=== PATIENT | female | born 1985 | race Hispanic/Latino ===

== ENCOUNTER 2019-02-25 12:26 | Emergency (ER) | payer MEDICAID, OTHER ==
[2019-02-25 12:27] VITALS: BMI 33.5
[2019-02-25 12:40] VITALS: RESP 18; O2SAT 98
[2019-02-25] MEDS ORDERED: Sodium Chloride 0.9% 1,000 ML IV STA ×2 (13:35→14:38)
[2019-02-25 14:18] LABS: BASO # 0.02 K/mm3 (0.0-2.0); BASO % 0.2 % (0.0-3.0); EOS # 0.1 (0.0-0.7); HEMOGLOBIN 13.9 g/dL (12.0-16.0); LYMPH # 4.5 (1.2-3.4); LYMPH % 39.2 % (22.0-35.0); MEAN CELL VOLUME 80.6 fl (80.0-105.0); MEAN CORPUSCULAR HEMOGLOBIN 26.1 pg (25.0-35.0); MEAN CORPUSCULAR HGB CONC 32.4 g/dl (31.0-37.0); MEAN PLATELET VOLUME 9.8 fl (7.0-11.0); MONO # 0.6 (0.1-0.6); MONO % 5.3 % (1.0-6.0); RBC 5.32 10^6/uL (3.5-6.1); RED CELL DISTRIBUTION WIDTH 14.3 % (11.5-14.5); URINE BILIRUBIN NEGATIVE (NEGATIVE); URINE BLOOD TRACE-LYSED (NEGATIVE); URINE GLUCOSE (UA) >=1000 mg/dL (NEGATIVE); URINE LEUKOCYTE ESTERASE NEGATIVE Leu/uL (NEGATIVE); URINE PROTEIN NEGATIVE mg/dL (<30 mg/dL); URINE UROBILINOGEN 0.2 E.U./dL (<1 E.U./dL); WHITE BLOOD COUNT 11.5 10^3/uL (4.5-11.0)
[2019-02-25 14:19] LABS: URINE APPEARANCE CLEAR (CLEAR); URINE COLOR LIGHT YELLOW (YELLOW)
[2019-02-25 14:23] LABS: URINE EPITHELIAL CELLS 0 - 2 /hpf (0-5); URINE RBC 0 - 2 /hpf (0-2)
[2019-02-25 14:27] LABS: INR 1.05; PARTIAL THROMBOPLASTIN TIME 34.6 Seconds (26.9-38.3); PROTHROMBIN TIME 11.7 SECONDS (9.4-12.5)
[2019-02-25 14:35] LABS: ALB/GLOB RATIO 1.2 (1.1-1.8); ALBUMIN 3.9 g/dL (3.0-4.8); ALT/SGPT 10 U/L (7-56); AST/SGOT 15 U/L (14-36); BLOOD UREA NITROGEN 8 mg/dL (7-21); GFR NON-AFRICAN AMERICAN > 60; LIPASE 51 U/L (23-300)
[2019-02-25 14:39] LABS: TROPONIN I < 0.01 ng/mL
--- NOTE | 2019-02-25 14:39 | ED PDOC ---
Arrival/HPI - General Chief Complaint: Abdominal Pain Time Seen by Provider: 02/25/19 13:14 Historian: Patient - History of Present Illness Narrative History of Present Illness (Text): 02/25/19 15:40 33 y/o female with no significant PMH presents to the ED c/o nausea x 1 week. Associated intermittent abdominal pain and 3 episodes nonbloody, nonbilious vomiting today and yesterday. Abdominal pain is crampy, generalized. Admits to 2-3 days of nonbloody diarrhea last week that has since resolved. No recent travel or sick contacts. Also c/o left eye redness and crusting when she wakes up in the morning for the last 2 days. Denies fever, chills, urinary symptoms, hematemesis, hematochezia, leg swelling, polyuria, polydipsia, headache, dizziness, vision changes, rash, back pain, cough, chest pain, SOB, or any other associated symptoms. Past Medical History - Provider Review Nursing Documentation Reviewed: Yes - Infectious Disease Hx of Infectious Diseases: None - Reproductive Menopause: No - Pulmonary Hx Pneumonia: Yes - Musculoskeletal/Rheumatological Hx Falls: No - Gastrointestinal Hx Gall Bladder Disease: Yes - Psychiatric Hx Depression: No Hx Substance Use: No - Surgical History Hx Cholecystectomy: Yes - Anesthesia Hx Anesthesia: Yes - Suicidal Assessment Feels Threatened In Home Enviroment: No Family/Social History - Physician Review Nursing Documentation Reviewed: Yes Family/Social History: No Known Family HX Smoking Status: Light Smoker < 10 Cigarettes Daily Hx Alcohol Use: Yes (OCCASIONALLY) Hx Substance Use: No Substance used: marijuana Hx Substance Use Treatment: No Allergies/Home Meds Allergies/Adverse Reactions: Allergies No Known Allergies Allergy (Verified 02/02/17 19:54) Review of Systems - Review of Systems Constitutional: Normal. absent: Fatigue, Fevers Eyes: Normal. absent: Vision Changes ENT: Normal. absent: Sore Throat, Sinus Congestion Respiratory: Normal. absent: SOB Cardiovascular: Normal. absent: Chest Pain, Palpitations, Syncope Gastrointestinal: Abdominal Pain, Diarrhea, Nausea, Vomiting. absent: Appetite Changes, Hematochezia, Hematemesis Genitourinary Female: Normal. absent: Dysuria, Frequency, Vaginal Bleeding, Vaginal Discharge Musculoskeletal: Normal. absent: Back Pain, Neck Pain Skin: Normal. absent: Rash Neurological: Normal. absent: Headache, Dizziness Physical Exam Vital Signs Reviewed: Yes Vital Signs Temp Pulse Resp BP Pulse Ox 02/25/19 12:36 98.2 F 77 18 144/86 98 Temperature: Afebrile Blood Pressure: Normal Pulse: Regular Respiratory Rate: Normal Appearance: Positive for: Well-Appearing, Non-Toxic, Comfortable Pain Distress: None Mental Status: Positive for: Alert and Oriented X 3 - Systems Exam Head: Present: Atraumatic, Normocephalic Pupils: Present: PERRL Extroacular Muscles: Present: EOMI (without pain). No: Other (NO periorbital edema or erythema) Conjunctiva: Present: Injected (left) Mouth: Present: Moist Mucous Membranes Neck: Present: Normal Range of Motion. No: Meningeal Signs Respiratory/Chest: Present: Clear to Auscultation, Good Air Exchange. No: Respiratory Distress, Accessory Muscle Use Cardiovascular: Present: Regular Rate and Rhythm, Normal S1, S2, Peripheal Pulses Present Abdomen: Present: Tenderness (epigastric, periumbilical; mild), Normal Bowel Sounds. No: Distention, Peritoneal Signs, Rebound, Guarding Back: Present: Normal Inspection. No: CVA Tenderness Upper Extremity: Present: Normal Inspection, Normal ROM, NORMAL PULSES, Neurovascularly Intact, Capillary Refill < 2s. No: Cyanosis, Edema, Temperature Abnormalties Lower Extremity: Present: Normal Inspection, NORMAL PULSES, Normal ROM, Neurovascularly Intact, Capillary Refill < 2 s. No: Edema, Temperature Abnormalties Neurological: Present: GCS=15, CN II-XII Intact, Speech Normal, Motor Func Grossly Intact, Normal Sensory Function, Gait Normal Skin: Present: Warm, Dry, Normal Color. No: Rashes Psychiatric: Present: Alert, Oriented x 3, Normal Insight, Normal Concentration, Normal Affect, Normal Mood Medical Decision Making ED Course and Treatment: Initial Plan: * CBC, CMP * Coags * Mg, Phos * Troponin * Lipase * UA * IVF * Zofran * Pepcid * CT Abd/Pelvis 14:39 Told by nursing that glucose is 407. Second liter of fluids ordered. VBG ordered. Mg low at 1.6, 1g magnesium sulfate ordered, IV. 15:45 VBG shows patient is not in DKA Bloodwork and urine reviewed, unremarkable Patient reports resolution of pain and nausea with medications. 16:24 Repeat fingerstick 257, improving CT scan negative Case discussed with ED attending Dr. Mahoney, who recommends discharge home with metformin prescription. Advised PMD followup within the next 2 days. Educat ed in depth on diabetic dietary changes and glucose monitoring. Pt has glucometer at home because she has gestational diabetes when she was in the past. Fingerstick 146 on discharge Diagnostic testing results and plan of care discussed with patient. Strict instructions given regarding prescription use, importance of followup, and signs/symptoms to return to ER including dizziness, vision changes, intractable vomiting, SOB, or any other new/worsening symptoms. Pt verbalized understanding of discussion. Patient is A&Ox3, ambulating with steady gait, with vital signs stable for discharge. - Lab Interpretations Lab Results: PT 11.7 SECONDS (9.4-12.5) 02/25/19 13:18 INR 1.05 02/25/19 13:18 APTT 34.6 Seconds (26.9-38.3) 02/25/19 13:18 Total Bilirubin 0.2 mg/dL (0.2-1.3) 02/25/19 13:18 AST 15 U/L (14-36) 02/25/19 13:18 ALT 10 U/L (7-56) 02/25/19 13:18 Alkaline Phosphatase 98 U/L (38-126) 02/25/19 13:18 Total Protein 7.2 g/dL (5.8-8.3) 02/25/19 13:18 Albumin 3.9 g/dL (3.0-4.8) 02/25/19 13:18 Globulin 3.3 gm/dL 02/25/19 13:18 Albumin/Globulin Ratio 1.2 (1.1-1.8) 02/25/19 13:18 Lipase 51 U/L (23-300) 02/25/19 13:18 Urine Color Light yellow (YELLOW) 02/25/19 13:18 Urine Appearance Clear (CLEAR) 02/25/19 13:18 Urine pH 6.0 (4.7-8.0) 02/25/19 13:18 Ur Specific [place] 1.010 (1.005-1.035) 02/25/19 13:18 Urine Protein Negative mg/dL (<30 mg/dL) 02/25/19 13:18 Urine Glucose (UA) >=1000 mg/dL (NEGATIVE) 02/25/19 13:18 Urine Ketones Negative mg/dL (NEGATIVE) 02/25/19 13:18 Urine Blood Trace-lysed (NEGATIVE) H 02/25/19 13:18 Urine Nitrate Negative (NEGATIVE) 02/25/19 13:18 Urine Bilirubin Negative (NEGATIVE) 02/25/19 13:18 Urine Urobilinogen 0.2 E.U./dL (<1 E.U./dL) 02/25/19 13:18 Ur Leukocyte Esterase Negative Mellissa/uL (NEGATIVE) 02/25/19 13:18 Urine RBC 0 - 2 /hpf (0-2) 02/25/19 13:18 Urine WBC None /hpf (0-6) 02/25/19 13:18 Ur Epithelial Cells 0 - 2 /hpf (0-5) 02/25/19 13:18 02/25/19 13:18 02/25/19 13:18 Lab Results 02/25/19 14:45: pO2 53, VBG pH 7.38, VBG pCO2 49.0, VBG HCO3 29.0 H, VBG Total CO2 30.5 H, VBG O2 Sat (Calc) 90.7 H, VBG Base Excess 3.0 H, VBG Potassium 4.2, Glucose 322 H, Lactate 1.5, FiO2 21.0, Sodium 136.0, Chloride 102.0, Venous Blood Potassium 4.2 02/25/19 13:18: Sodium 135, Potassium 4.4, Chloride 99, Carbon Dioxide 25, Anion Gap 16, BUN 8, Creatinine 0.4 L, Est GFR ( Amer) > 60, Est GFR (Non-Af Amer) > 60, Random Glucose 407 H*, Calcium 9.0, Magnesium 1.6 L, Total Bilirubin 0.2, AST 15, ALT 10, Alkaline Phosphatase 98, Troponin I < 0.01, Total Protein 7.2, Albumin 3.9, Globulin 3.3, Albumin/Globulin Ratio 1.2, Lipase 51 02/25/19 13:18: Urine Color Light yellow, Urine Appearance Clear, Urine pH 6.0, Ur Specific [place] 1.010, Urine Protein Negative, Urine Glucose (UA) >=1000, Urine Ketones Negative, Urine Blood Trace-lysed H, Urine Nitrate Negative, Urine Bilirubin Negative, Urine Urobilinogen 0.2, Ur Leukocyte Esterase Negative, Urine RBC 0 - 2, Urine WBC None, Ur Epithelial Cells 0 - 2 02/25/19 13:18: PT 11.7, INR 1.05, APTT 34.6 02/25/19 13:18: WBC 11.5 H, RBC 5.32, Hgb 13.9, Hct 42.9, MCV 80.6, MCH 26.1, MCHC 32.4, RDW 14.3, Plt Count 301, MPV 9.8, Neut % (Auto) 54.3, Lymph % (Auto) 39.2 H, [place] % (Auto) 5.3, Eos % (Auto) 1.0 L, Baso % (Auto) 0.2, Lymph # (Auto) 4.5 H, [place] # (Auto) 0.6, Eos # (Auto) 0.1, Baso # (Auto) 0.02, Absolute Neuts (auto) 6.23 I have reviewed the lab results: Yes - RAD Interpretation Narrative RAD Interpretations (Text): 02/25/19 16:53 CT Abd/Pelvis: FINDINGS: LOWER THORAX: Unremarkable. LIVER: Unremarkable. No gross lesion or ductal dilatation. GALLBLADDER AND BILE DUCTS: Gallbladder removed PANCREAS: Unremarkable. No gross lesion or ductal dilatation. SPLEEN: Unremarkable. ADRENALS: Unremarkable. No mass. KIDNEYS AND URETERS: Unremarkable. No hydronephrosis. No solid mass. VASCULATURE: Unremarkable. No aortic aneurysm. No aortic atherosclerotic calcification or mural plaque present. BOWEL: Unremarkable. No obstruction. No gross mural thickening. APPENDIX: Normal appendix. PERITONEUM: Unremarkable. No free fluid. No free air. LYMPH NODES: Unremarkable. No enlarged lymph nodes. BLADDER: Unremarkable. REPRODUCTIVE: Unremarkable. BONES: No acute fracture. OTHER FINDINGS: None. IMPRESSION: No acute intra-abdominal findings Radiology Orders: 02/25/19 13:36 ABD & PELVIS IV CONTRAST ONLY [CT] Stat Washing Tub Operator: Radiologist - Medication Orders Current Medication Orders: Discontinued Medications Famotidine (Pepcid) 20 mg IVP STAT STA Stop: 02/25/19 13:36 Last Admin: 02/25/19 14:14 Dose: 20 mg IVP Administration Document 02/25/19 14:14 HN (Rec: 02/25/19 14:14 HN [id number]) Charges for Administration # of IVP Administrations 1 Sodium Chloride (Sodium Chloride 0.9%) 1,000 mls @ 1,000 mls/hr IV .Q1H STA Stop: 02/25/19 14:34 Last Admin: 02/25/19 14:15 Dose: 1,000 mls/hr eMAR Start Stop Document 02/25/19 14:15 HN (Rec: 02/25/19 14:15 HN [id number]) Intravenous Solution Start Date 02/25/19 Start Time 14:15 Ondansetron HCl (Zofran Inj) 4 mg IVP STAT STA Stop: 02/25/19 13:36 Last Admin: 02/25/19 14:14 Dose: 4 mg IVP Administration Document 02/25/19 14:14 HN (Rec: 02/25/19 14:14 HN [id number]) Charges for Administration # of IVP Administrations 1 Disposition/Present on Arrival - Present on Arrival Any Indicators Present on Arrival: No History of DVT/PE: No History of Uncontrolled Diabetes: No Urinary Catheter: No History of Decub. Ulcer: No History Surgical Site Infection Following: None - Disposition Have Diagnosis and Disposition been Completed?: Yes Diagnosis: Hyperglycemia, Nausea and vomiting, Abdominal pain Disposition: HOME/ ROUTINE Disposition Time: 17:15 Patient Plan: Discharge Condition: IMPROVED Discharge Instructions (ExitCare): Hyperglycemia, Adult, Acute Abdomen (Belly Pain), Blood Glucose Monitoring, The ABCs of Diabetes, Diabetes and Diet Additional Instructions: Metformin every 12 hours 2 eye drops every 3 hours while awake in left eye Low carb diet, no soda or sugary drinks Keep log of glucose readings using glucometer Followup with primary doctor tomorrow Return to ER with any new/worsening symptoms Prescriptions: Blood Sugar Diagnostic [Glucose Test Strip] 1 each Q12 #120 strip metFORMIN [glucOPHAGE] 500 mg PO Q12H #28 tab Sulfacetamide Sodium [Bleph 10% Eye Drops] 2 drop OD Q3 #1 bottle Referrals: [facility] [place] [facility] [place] - Follow up with primary Carmina Carpenter MD [Medical Doctor] - Follow up with primary Forms: [facility] (Czech), WORK NOTE
[2019-02-25] MEDS ORDERED: Magnesium Sulfate 2 gm/50 ml 2 GM/50 ML BAG IVPB ONE (14:43)
[2019-02-25] MEDS ORDERED: Iohexol 350 MG/100 ML VIAL ONE (14:46)
[2019-02-25 14:51] LABS: VENOUS BLOOD GAS PO2 53 mm/Hg (30-55); VENOUS BLOOD PH 7.38 (7.32-7.43)
--- NOTE | 2019-02-25 16:43 | CT ---
Date of service: 02/25/2019 PROCEDURE: CT Abdomen and Pelvis with contrast HISTORY: nausea, lower abdominal pain COMPARISON: None. TECHNIQUE: Contrast dose: 96 cc of Omni 350 Radiation dose: Total exam DLP = 1018.22 mGy-cm. This CT exam was performed using one or more of the following dose reduction techniques: Automated exposure control, adjustment of the mA and/or kV according to patient size, and/or use of iterative reconstruction technique. FINDINGS: LOWER THORAX: Unremarkable. LIVER: Unremarkable. No gross lesion or ductal dilatation. GALLBLADDER AND BILE DUCTS: Gallbladder removed PANCREAS: Unremarkable. No gross lesion or ductal dilatation. SPLEEN: Unremarkable. ADRENALS: Unremarkable. No mass. KIDNEYS AND URETERS: Unremarkable. No hydronephrosis. No solid mass. VASCULATURE: Unremarkable. No aortic aneurysm. No aortic atherosclerotic calcification or mural plaque present. BOWEL: Unremarkable. No obstruction. No gross mural thickening. APPENDIX: Normal appendix. PERITONEUM: Unremarkable. No free fluid. No free air. LYMPH NODES: Unremarkable. No enlarged lymph nodes. BLADDER: Unremarkable. REPRODUCTIVE: Unremarkable. BONES: No acute fracture. OTHER FINDINGS: None. IMPRESSION: No acute intra-abdominal findings
[2019-02-25 17:32] VITALS: BP 141/76; PULSE 70; TEMP 98.3
== END 2019-02-25 17:32 | disposition home or self-care (01) ==
LOC: ED 12:26
DX: R11.2 Nausea with vomiting, unspecified (principal); R10.30 Lower abdominal pain, unspecified; R73.9 Hyperglycemia, unspecified
CPT/HCPCS: 74177; 80053; 81001; 81025; 82803; 82948; 83690; 83735; 84484; 85025; 85610; 85730; 96374; 96375; 99284; J2405; J7030; Q9967